=== PATIENT | male | born 1940 | race Caucasian/White ===

== ENCOUNTER 2018-12-27 13:07 | Day surgery (SDC) | payer MEDICARE, BC ==
[~2018-12-27] VITALS: Ht 175.3 cm; Wt 76.3 kg
[~2018-12-27 13:07] MED LIST: ATEN25; DILT240 PO; OMEP20ER PO; QUIN5 PO; RANI150 PO; ROSU5 PO
[2018-12-27] MEDS ORDERED: ESOM20 (13:37)
== END 2018-12-27 15:05 | disposition home or self-care (01) ==
LOC: ORSCSDS 13:07
PROVIDERS: Internal Medicine Gastroenterology
PROC: 0DB58ZX Excision of Esophagus, Via Natural or Artificial Opening Endoscopic, Diagnostic (ICD-10-PCS; principal; 2018-12-27 14:30)
DX: K21.9 Gastro-esophageal reflux disease without esophagitis (principal); K44.9 Diaphragmatic hernia without obstruction or gangrene; I48.91 Unspecified atrial fibrillation; E78.5 Hyperlipidemia, unspecified; I10 Essential (primary) hypertension; Z87.891 Personal history of nicotine dependence; Z79.82 Long term (current) use of aspirin; Z79.899 Other long term (current) drug therapy
CPT/HCPCS: 87081; 88305; 88312; J2704; J7120

== ENCOUNTER → 2020-10-11 | Outpatient (CLI) | payer MEDICARE, BC ==
[~2020-10-11] MED LIST changes: +ESOM20
[2020-10-11 14:23] LABS: BASOPHILS ABSOLUTE AUTO 0.03 K/mm3 (0.00-0.23); BASOPHILS PERCENT AUTO 1 % (0-2); EOSINOPHILS ABSOLUTE AUTO 0.18 K/mm3 (0.00-0.68); EOSINOPHILS PERCENT AUTO 3 % (0-6); Hematocrit 46.9 % (37.0-53.0); Hemoglobin 15.5 g/dL (13.5-17.5); IMMATURE GRAN ABSOLUTE AUTO 0.03 K/mm3 (0.00-0.10); IMMATURE GRAN PERCENT AUTO 1 % (0-1); LYMPHOCYTES ABSOLUTE AUTO 0.97 K/mm3 (0.84-5.20); LYMPHOCYTES PERCENT AUTO 16 % (21-46); MONOCYTES ABSOLUTE AUTO 0.43 K/mm3 (0.16-1.47); MONOCYTES PERCENT AUTO 7 % (4-13); Mean Corpuscular HGB 29.2 pg (26.0-34.0); Mean Corpuscular Volume 88 fL (80-100); Mean Platelet Volume 9.5 fL (9.1-12.4); NEUTROPHILS ABSOLUTE AUTO 4.55 K/mm3 (1.96-9.15); NEUTROPHILS PERCENT AUTO 74 % (41-73); Platelet Count 190 K/mm3 (150-400); RDW Coefficient Variation 13.1 % (11.7-14.2); RDW Standard Deviation 42.4 fL (35.1-46.3); Red Blood Cell Count 5.31 M/mm3 (4.30-5.90); White Blood Cell Count 6.19 K/mm3 (4.00-11.30)
[2020-10-11 14:34] LABS: Alanine Aminotransfer (ALT/SGP 30 U/L (12-78); Albumin, Blood 4.3 g/dL (3.4-5.0); Albumin/Globulin Ratio 1.4 (0.8-1.8); Alk Phos 80 U/L (40-126); Anion Gap 9 mmol/L (6-16); Aspartate Aminotrans (AST/SGOT 16 U/L (12-37); Blood Urea Nitrogen 20 mg/dL (8-24); Bun/Creatinine Ratio 16.9 (12.0-20.0); CO2, Blood 27 mmol/L (21-32); Calcium, Blood 10.4 mg/dL (8.5-10.1); Chloride, Blood 109 mmol/L (98-108); Creatinine, Blood 1.18 mg/dL (0.60-1.20); Globulin, Blood 3.1 g/dL (2.2-4.0); Glomerular Filtration Rate 59 (60-); Glucose, Blood 87 mg/dL (70-99); Sodium, Blood 145 mmol/L (136-145); Total Protein, Blood 7.4 g/dL (6.4-8.2); Troponin I <0.017 ng/mL (0.000-0.040)
== END | disposition home or self-care (01) ==
LOC: EFM RAD 14:16 → LAB SHORT 14:16 → RAD SHORT 14:16
PROVIDERS: Physician Assistant
DX: R07.9 Chest pain, unspecified (principal)
CPT/HCPCS: 74022; 80053; 83690; 84484; 85025; 85379

== ENCOUNTER 2022-09-12 20:17 | Emergency (ER) | payer MEDICARE ==
[~2022-09-12] VITALS: Ht 172.7 cm; Wt 72.6 kg
[2022-09-12 20:49] LABS: BASOPHILS ABSOLUTE AUTO 0.02 K/mm3 (0.00-0.23); BASOPHILS PERCENT AUTO 0 % (0-2); EOSINOPHILS ABSOLUTE AUTO 0.07 K/mm3 (0.00-0.68); EOSINOPHILS PERCENT AUTO 1 % (0-6); Hematocrit 40.5 % (37.0-53.0); Hemoglobin 13.3 g/dL (13.5-17.5); IMMATURE GRAN ABSOLUTE AUTO 0.01 K/mm3 (0.00-0.10); IMMATURE GRAN PERCENT AUTO 0 % (0-1); LYMPHOCYTES ABSOLUTE AUTO 1.04 K/mm3 (0.84-5.20); LYMPHOCYTES PERCENT AUTO 17 % (21-46); MONOCYTES ABSOLUTE AUTO 0.46 K/mm3 (0.16-1.47); MONOCYTES PERCENT AUTO 7 % (4-13); Mean Corpuscular HGB 28.9 pg (26.0-34.0); Mean Corpuscular HGB Conc 32.8 g/dL (31.5-36.5); Mean Corpuscular Volume 88 fL (80-100); Mean Platelet Volume 9.2 fL (9.1-12.4); NEUTROPHILS PERCENT AUTO 74 % (41-73); Platelet Count 173 K/mm3 (150-400); RDW Coefficient Variation 13.2 % (11.7-14.2); RDW Standard Deviation 42.7 fL (35.1-46.3)
[2022-09-12 21:07] LABS: Albumin/Globulin Ratio 1.3 (0.8-1.8); Bilirubin, Total 0.8 mg/dL (0.1-1.0); Bun/Creatinine Ratio 20.2 (12.0-20.0); Calcium, Blood 9.9 mg/dL (8.5-10.1); Creatinine, Blood 1.24 mg/dL (0.60-1.20); Potassium, Blood 4.3 mmol/L (3.5-5.5)
[2022-09-12 23:05] VITALS: BP 140/70
== END 2022-09-12 23:00 | disposition home or self-care (01) ==
LOC: ER 20:17
PROVIDERS: Physician Assistant
DX: R20.2 Paresthesia of skin (principal); I10 Essential (primary) hypertension; K21.9 Gastro-esophageal reflux disease without esophagitis; Z79.899 Other long term (current) drug therapy
CPT/HCPCS: 70450; 80053; 85025; 93005; 93010

== ENCOUNTER → 2024-03-16 | Outpatient (CLI) | payer MEDICARE | END | disposition home or self-care (01) | LOC: LAB 14:01 → LAB SHORT 14:01 | DX: M10.9 Gout, unspecified (principal) | CPT/HCPCS: 84550 ==

== ENCOUNTER 2024-04-16 09:57 | Emergency (ER) | payer MEDICARE ==
[~2024-04-16] VITALS: Ht 175.3 cm; Wt 70.3 kg
[2024-04-16 10:24] VITALS: BP 171/106
[2024-04-16] MEDS ORDERED: Ipratropium/Albuterol SulF 2.5-0.5MG/3 ML Amp INH ONE (10:45)
[2024-04-16 10:59] LABS: CORONAVIRUS COVID-19 AG Negative (NEGATIVE); INFLUENZA A AG Negative (NEGATIVE); INFLUENZA B AG Negative (NEGATIVE)
[2024-04-16 11:41] LABS: Influenza A, PCR NEGATIVE (NEGATIVE); Influenza B, PCR NEGATIVE (NEGATIVE); Resp Syncytial Virus, PCR NEGATIVE (NEGATIVE); SARS-Cov-2 (COVID-19) PCR, MMC NEGATIVE (NEGATIVE)
[2024-04-16] MEDS ORDERED: BENZ100A PO (11:59)
[2024-04-16] MEDS ORDERED: AZIT250 PO (11:59)
[2024-04-16] MEDS ORDERED: Benzonatate 100 MG Cap PO ONE (12:00)
[2024-04-16] MEDS ORDERED: Azithromycin 250 MG Tab PO ONE (12:00)
== END 2024-04-16 12:15 | disposition home or self-care (01) ==
LOC: ER 09:57
PROVIDERS: Emergency Medicine; Physician Assistant
DX: R05.9 Cough, unspecified (principal); K21.9 Gastro-esophageal reflux disease without esophagitis; I10 Essential (primary) hypertension; E78.00 Pure hypercholesterolemia, unspecified; Z79.899 Other long term (current) drug therapy
CPT/HCPCS: 0241U; 71045; 87428-QW; 94640; 94664; 99284-25; A9270

== ENCOUNTER → 2024-11-29 | Outpatient (CLI) | payer MEDICARE ==
[~2024-11-29] MED LIST changes: +AZIT250 PO; +BENZ100A PO
[2024-11-29 15:01] LABS: BASOPHILS ABSOLUTE AUTO 0.02 K/mm3 (0.00-0.23); BASOPHILS PERCENT AUTO 0 % (0-2); EOSINOPHILS ABSOLUTE AUTO 0.13 K/mm3 (0.00-0.68); EOSINOPHILS PERCENT AUTO 2 % (0-6); Hematocrit 38.4 % (37.0-53.0); Hemoglobin 12.7 g/dL (13.5-17.5); IMMATURE GRAN ABSOLUTE AUTO 0.01 K/mm3 (0.00-0.10); IMMATURE GRAN PERCENT AUTO 0 % (0-1); LYMPHOCYTES ABSOLUTE AUTO 0.61 K/mm3 (0.84-5.20); LYMPHOCYTES PERCENT AUTO 11 % (21-46); MONOCYTES ABSOLUTE AUTO 0.30 K/mm3 (0.16-1.47); MONOCYTES PERCENT AUTO 6 % (4-13); Mean Corpuscular HGB Conc 33.1 g/dL (31.5-36.5); Mean Corpuscular Volume 87 fL (80-100); NEUTROPHILS ABSOLUTE AUTO 4.28 K/mm3 (1.96-9.15); NEUTROPHILS PERCENT AUTO 80 % (41-73); NRBC ABSOLUTE 0.00 K/mm3 (0.00-0.02); NRBC Auto 0.0 /100 WBC (0.0-0.2); Platelet Count 165 K/mm3 (150-400); RDW Coefficient Variation 13.2 % (11.7-14.2); RDW Standard Deviation 41.8 fL (35.1-46.3)
[2024-11-29 15:16] LABS: Alanine Aminotransfer (ALT/SGP 22.0 U/L (12-78); Albumin, Blood 4.0 g/dL (3.4-5.0); Albumin/Globulin Ratio 1.3 (0.8-1.8); Anion Gap 10.0 mmol/L (3-11); Aspartate Aminotrans (AST/SGOT 14.0 U/L (12-37); Bilirubin, Total 1.0 mg/dL (0.1-1.0); Blood Urea Nitrogen 14.0 mg/dL (8-24); CO2, Blood 27.0 mmol/L (21-32); Calcium, Blood 9.5 mg/dL (8.5-10.1); Chloride, Blood 99.0 mmol/L (98-108); Creatinine, Blood 1.03 mg/dL (0.60-1.20); Globulin, Blood 3.0 g/dL (2.2-4.0); Glucose, Blood 92.0 mg/dL (70-99); Potassium, Blood 4.2 mmol/L (3.5-5.5); Sodium, Blood 132.0 mmol/L (136-145); Total Protein, Blood 7.0 g/dL (6.4-8.2)
== END ==
LOC: LAB 14:56 → LAB SHORT 14:56
PROVIDERS: Physician Assistant
DX: R42 Dizziness and giddiness (principal)
CPT/HCPCS: 80053; 84484; 85025

== ENCOUNTER 2024-11-30 11:49 | Inpatient (IN) | payer MEDICARE ==
[~2024-11-30] VITALS: Ht 172.7 cm; Wt 71.4 kg
[2024-11-30 12:17] LABS: BASOPHILS ABSOLUTE AUTO 0.02 K/mm3 (0.00-0.23); BASOPHILS PERCENT AUTO 0 % (0-2); EOSINOPHILS ABSOLUTE AUTO 0.11 K/mm3 (0.00-0.68); EOSINOPHILS PERCENT AUTO 2 % (0-6); Hematocrit 36.8 % (37.0-53.0); Hemoglobin 12.3 g/dL (13.5-17.5); IMMATURE GRAN ABSOLUTE AUTO 0.03 K/mm3 (0.00-0.10); IMMATURE GRAN PERCENT AUTO 1 % (0-1); LYMPHOCYTES ABSOLUTE AUTO 0.51 K/mm3 (0.84-5.20); LYMPHOCYTES PERCENT AUTO 9 % (21-46); MONOCYTES ABSOLUTE AUTO 0.27 K/mm3 (0.16-1.47); MONOCYTES PERCENT AUTO 5 % (4-13); Mean Corpuscular HGB Conc 33.4 g/dL (31.5-36.5); Mean Corpuscular Volume 86 fL (80-100); NEUTROPHILS ABSOLUTE AUTO 4.51 K/mm3 (1.96-9.15); NEUTROPHILS PERCENT AUTO 83 % (41-73); NRBC ABSOLUTE 0.00 K/mm3 (0.00-0.02); NRBC Auto 0.0 /100 WBC (0.0-0.2); RDW Coefficient Variation 13.2 % (11.7-14.2); RDW Standard Deviation 41.2 fL (35.1-46.3)
[2024-11-30 12:33] LABS: Alanine Aminotransfer (ALT/SGP 17.0 U/L (12-78); Albumin, Blood 3.4 g/dL (3.4-5.0); Albumin/Globulin Ratio 1.1 (0.8-1.8); Anion Gap 8.0 mmol/L (3-11); Aspartate Aminotrans (AST/SGOT 16.0 U/L (12-37); Bilirubin, Total 1.0 mg/dL (0.1-1.0); Blood Urea Nitrogen 13.0 mg/dL (8-24); CO2, Blood 26.0 mmol/L (21-32); Calcium, Blood 8.7 mg/dL (8.5-10.1); Chloride, Blood 108.0 mmol/L (98-108); Creatinine, Blood 0.95 mg/dL (0.60-1.20); Globulin, Blood 3.0 g/dL (2.2-4.0); Glucose, Blood 101.0 mg/dL (70-99); Platelet Count 144 K/mm3 (150-400); Potassium, Blood 4.4 mmol/L (3.5-5.5); Sodium, Blood 138.0 mmol/L (136-145); Total Protein, Blood 6.4 g/dL (6.4-8.2)
[2024-11-30] MEDS ORDERED: Ondansetron HCl 2 MG / ML 2ML Vial IV ONE (12:45)
[2024-11-30 13:00] LABS: pH Blood Venous 7.31 (7.34-7.37)
[2024-11-30] MEDS ORDERED: NS 1,000 ML IV SCH (13:15)
[2024-11-30] MEDS ORDERED: HydrALAZINE HCl 20 MG / ML 1ML Vial IV PRN (14:55)
[2024-11-30 16:05] LABS: U Amphetamine Screen Not Detected; U Barbituate Screen Not Detected; U Benzodiazapine Screen Not Detected; U Buprenorphine Screen Not Detected; U Cannabinoids Screen Not Detected; U Cocaine Screen Not Detected; U Methadone Screen Not Detected; U Methamphetamine Screen Not Detected; U Opiates Screen Not Detected; U Oxycodone Screen Not Detected; U Phencyclidine Screen Not Detected
[2024-11-30] MEDS ORDERED: LORazepam 2 MG/ML 1ML Injection IV ONE (16:10)
[2024-11-30] MEDS ORDERED: Diazepam 5 MG / ML 2ML SYR IV ONE (16:15)
[2024-11-30] MEDS ORDERED: Diazepam 5 MG / ML 2ML SYR IV PRN (16:30)
[2024-11-30] MEDS ORDERED: Vancomycin (Pharmacy Consult) IV SCH (16:30)
[2024-11-30] MEDS ORDERED: Acyclovir 800 MG in Dextrose 5% 250 ML IV SCH (16:32)
[2024-11-30] MEDS ORDERED: FentaNYL Citrate 50 MCG/ML 2 ML Injection IV PRN (16:55)
[2024-11-30 17:30] LABS: Automated CSF WBC Count 0.094 K/mm3 (0-5)
[2024-11-30 17:34] LABS: Automated CSF WBC Count 0.091 K/mm3 (0-5)
[2024-11-30] MEDS ORDERED: Ampicillin Sod 2,000 MG in NS 100 ML IV SCH (18:00)
[2024-11-30 18:02] LABS: RBC Count, CSF 161 /mm3 (0-0); WBC Count, CSF 94 /mm3 (0-5)
[2024-11-30 18:06] VITALS: BP 165/77
[2024-11-30 18:07] LABS: pH Blood Venous 7.35 (7.34-7.37)
[2024-11-30 18:12] LABS: RBC Count, CSF 2 /mm3 (0-0); WBC Count, CSF 91 /mm3 (0-5)
[2024-11-30] MEDS ORDERED: CefTRIAXone Sodium 2,000 MG in NS 100 ML IV SCH (18:30)
[2024-11-30 19:07] LABS: Lymphocytes, CSF 89 % (40-80); Monocytes, CSF 6 % (15-45); Neutrophils, CSF 5 % (0-6)
[2024-11-30 19:10] LABS: Eosinophils, CSF 1 % (0-0); Lymphocytes, CSF 86 % (40-80); Monocytes, CSF 9 % (15-45); Neutrophils, CSF 4 % (0-6)
[2024-11-30] MEDS ORDERED: NS 250 ML IV PRN (20:15)
[2024-11-30] MEDS ORDERED: NS 500 ML IV ONE (20:15)
[2024-11-30] MEDS ORDERED: Lactobacil 2-S.Thermo-Bifido 1 1 Cap PO SCH (21:00)
[2024-11-30 22:00] LABS: Haemophilus Influenza Not Detected (NOT DETECT)
[2024-12-01 01:11] VITALS: BP 135/57
[2024-12-01 05:12] LABS: BASOPHILS ABSOLUTE AUTO 0.03 K/mm3 (0.00-0.23); BASOPHILS PERCENT AUTO 1 % (0-2); EOSINOPHILS ABSOLUTE AUTO 0.04 K/mm3 (0.00-0.68); EOSINOPHILS PERCENT AUTO 1 % (0-6); Hematocrit 30.8 % (37.0-53.0); Hemoglobin 10.3 g/dL (13.5-17.5); IMMATURE GRAN ABSOLUTE AUTO 0.02 K/mm3 (0.00-0.10); IMMATURE GRAN PERCENT AUTO 0 % (0-1); LYMPHOCYTES ABSOLUTE AUTO 0.47 K/mm3 (0.84-5.20); LYMPHOCYTES PERCENT AUTO 7 % (21-46); MONOCYTES ABSOLUTE AUTO 0.30 K/mm3 (0.16-1.47); MONOCYTES PERCENT AUTO 5 % (4-13); Mean Corpuscular HGB Conc 33.4 g/dL (31.5-36.5); Mean Corpuscular Volume 88 fL (80-100); NEUTROPHILS ABSOLUTE AUTO 5.48 K/mm3 (1.96-9.15); NEUTROPHILS PERCENT AUTO 87 % (41-73); NRBC ABSOLUTE 0.00 K/mm3 (0.00-0.02); NRBC Auto 0.0 /100 WBC (0.0-0.2); Platelet Count 133 K/mm3 (150-400); RDW Coefficient Variation 13.1 % (11.7-14.2); RDW Standard Deviation 42.0 fL (35.1-46.3)
[2024-12-01 05:14] VITALS: BP 121/66
--- NOTE | 2024-12-01 05:19 | NUR ---
SHIFT SUMMARY ALTERED MENTATION THAT WAXES AND WANES, BUT NO NEW NEURO DEFECITS. REMAINS WEAK IN THE LEFT EXTREMITIES WITH ATAXIA. SEVERAL EPISODES OF CONFUSION/AGITATION. UNABLE TO COOPERATE DUE TO AMS. UNABLE TO EXPRESS NEEDS CLEARLY WITHOUT ASSISTANCE. ATTEMPTING TO GET OUT OF BED DESPITE SEVERAL ATTEMPTS TO EDUCATE AND REINFORCE SAFETY METHODS AND RESOURCES. UNABLE TO DEMONSTRATE USE OF THE CALL LIGHT APPROPRIATELY AT THIS TIME. PULLING AT LINES AND TUBES. WOULD NOT KEEP PULSE OXIMETER ON. OCCASIONALLY UNABLE TO REDIRECT. DAUGHTER AT BEDSIDE THROUGHOUT THE EVENING TO HELP REORIENT. ARIZMENDI PLACED FOR ACUTE RETENTION. DIFFICULT INSERTION. PATENT AND DRAINING. VSS. SB TO NSR 50'S-70'S. RA. FREQUENT ROUNDING IMPLEMENTED, BED ALARM ARMED AND IN LOW/LOCKED POSITION. CALL LIGHT WITHIN REACH OF PATIENT AND FAMILY. PAIN TREATED, PATIENT APPEARS ASLEEP AND COMFORTABLE AT THIS TIME, NO VISIBLE DISTRESS. WILL CONTINUE TO MONITOR FREQUENTLY AND UTILIZE FAMILY ASSISTANCE FOR REORIENTATION AND REDIRECTION.
[2024-12-01 05:29] LABS: Anion Gap 8.0 mmol/L (3-11); Blood Urea Nitrogen 12.0 mg/dL (8-24); CO2, Blood 25.0 mmol/L (21-32); Calcium, Blood 8.3 mg/dL (8.5-10.1); Chloride, Blood 109.0 mmol/L (98-108); Creatinine, Blood 0.81 mg/dL (0.60-1.20); Glucose, Blood 98.0 mg/dL (70-99); Potassium, Blood 4.1 mmol/L (3.5-5.5); Sodium, Blood 138.0 mmol/L (136-145)
[2024-12-01 08:09] VITALS: BP 156/62
[2024-12-01] MEDS ORDERED: Enoxaparin 40 MG/0.4 ML SYR SC SCH (09:00)
[2024-12-01] MEDS ORDERED: Ketorolac Tromethamine 15mg Vial IV PRN (11:25)
[2024-12-01] MEDS ORDERED: FOSPHENYTOIN PE IV STA (11:57)
[2024-12-01] MEDS ORDERED: NS IV STA (11:57)
[2024-12-01 11:58] LABS: Alanine Aminotransfer (ALT/SGP 13 U/L (12-78); Albumin, Blood 2.8 g/dL (3.4-5.0); Albumin/Globulin Ratio 1.1 (0.8-1.8); Aspartate Aminotrans (AST/SGOT 11 U/L (12-37); Bilirubin, Direct 0.2 mg/dL (0.0-0.3); Bilirubin, Indirect 1.1 mg/dL (0.1-0.7); Bilirubin, Total 1.3 mg/dL (0.1-1.0); C-REACTIVE PROTEIN, EXT RANGE <0.290 mg/dL (0.000-0.300); Globulin, Blood 2.5 g/dL (2.2-4.0); Magnesium, Blood 1.7 mg/dL (1.6-2.4); Phosphorus, Blood 1.9 mg/dL (2.5-4.9); Thyroid Stimulating Hormone 0.845 uIU/mL (0.360-4.800); Total Protein, Blood 5.3 g/dL (6.4-8.2)
[2024-12-01 12:01] VITALS: BP 117/89
[2024-12-01 13:32] LABS: Source, Urine Clean Catch
[2024-12-01 13:49] LABS: Bilirubin, Urine Neg (Neg); Color, Urine Yellow (P-Yellow); Glucose Qualitative, Urine Neg (Neg); Ketones, Urine 2+ (Neg); Leukocyte Esterase, Urine Neg (Neg); Protein, Urine 2+ (Neg); Specific Gravity, Urine 1.020 (1.003-1.022); Urobilinogen, Urine NORM (Normal)
[2024-12-01 14:06] LABS: White Blood Cells, Urine 0-2 /hpf (0-5)
[2024-12-01 14:38] VITALS: BP 117/89
--- NOTE | 2024-12-01 15:48 | NUR ---
REPORT TO RN AT [facility] TO ASSUME CARE. GROUND TRANSFER, REPORT TO TRANSPORT CREW. ARIZMENDI IN PLACE, IV SALINE LOCKED. MOVING ALL FOUR EXREMETIES BUT UNABLE TO FOLLOW DIRECTIONS, NO ACUTE DISTRESS.
== END 2024-12-01 15:32 | disposition short-term general hospital (02) | DRG 97 ==
LOC: ER 11:49 → PCU 11:50
PROVIDERS: Emergency Medicine; Internal Medicine; ADMIT Family Medicine
PROC: 009U3ZX Drainage of Spinal Canal, Percutaneous Approach, Diagnostic (ICD-10-PCS; principal; 2024-11-30)
PROC: 4A00X4Z Measurement of Central Nervous Electrical Activity, External Approach (ICD-10-PCS; 2024-12-01)
DX: G03.9 Meningitis, unspecified (principal); G92.8 Other toxic encephalopathy; G93.41 Metabolic encephalopathy; E87.4 Mixed disorder of acid-base balance; D64.9 Anemia, unspecified; D69.6 Thrombocytopenia, unspecified; I10 Essential (primary) hypertension; E78.00 Pure hypercholesterolemia, unspecified; K21.9 Gastro-esophageal reflux disease without esophagitis; Z85.51 Personal history of malignant neoplasm of bladder
CPT/HCPCS: 36415; 70450; 70551; 71045; 80048; 80053; 80076; 80320; 81001; 82140; 82550; 82803; 82945; 82947; 83605; 83735; 84100; 84145; 84146; 84157; 84443; 84484; 85025; 85651; 86140; 87483; 89051; 93005; 93010; 93306; 97165; 97535; A9270; J0133; J0290; J0696; J1650; J1885; J1953; J2405; J3010; J3360; J3373; J7030; J7040; J7050; J7060; J7120; Q2009

== ENCOUNTER 2024-12-21 22:24 | Emergency (ER) | payer MEDICARE ==
[~2024-12-21] VITALS: Ht 172.7 cm; Wt 66.2 kg
[2024-12-21 22:31] VITALS: BP 157/88
== END 2024-12-21 22:36 | disposition home or self-care (01) ==
LOC: ER 22:24
DX: Z00.00 Encounter for general adult medical examination without abnormal findings (principal); I10 Essential (primary) hypertension; K21.9 Gastro-esophageal reflux disease without esophagitis; Z79.899 Other long term (current) drug therapy
CPT/HCPCS: 99283

== ENCOUNTER → 2025-02-11 | Outpatient (CLI) | payer MEDICARE | LOC: LAB 18:33 → LAB SHORT 18:33 | DX: R35.0 Frequency of micturition (principal) | CPT/HCPCS: 87077; 87086; 87186 ==

== ENCOUNTER → 2025-04-14 | Outpatient (CLI) | payer MEDICARE | END | disposition home or self-care (01) | LOC: LAB 13:35 → LAB SHORT 13:35 | DX: M79.674 Pain in right toe(s) (principal) | CPT/HCPCS: 84550 ==